=== PATIENT | male | born 1945 | race Caucasian/White ===

== ENCOUNTER → 2016-12-20 | Outpatient (CLI) | payer OTHER, BC ==
[~2016-12-20] MED LIST: ASPIRIN325 MG PO; ATIVAN0.5 MG PO; CELEBREX200 MG PO; ESZOPICLONE2 MG PO; EVOXAC30 MG PO; GABAPENTIN600 MG PO; HYDROCODON-ACE1 EAC7 PO; LIPITOR20 MG PO; LISINOPRIL20 MG PO; LO-DOSE ASPIRIN81 M1 PO; PERCOCET 5/31 TABLET PO; VALIUM5 MG PO; VICODIN 5-3001 EACH PO
== END | disposition home or self-care (01) ==
DX: R13.11 Dysphagia, oral phase (principal); R13.13 Dysphagia, pharyngeal phase; K21.9 Gastro-esophageal reflux disease without esophagitis
CPT/HCPCS: 92611 GN; G8996 GN; G8997 GN; G8998 GN